=== PATIENT | female | born 2000 | race Two or more races ===

== ENCOUNTER 2025-02-17 09:44 | Emergency (ER) | payer OTHER ==
[2025-02-17 09:55] VITALS: RESP 18; BMI 24.2
[2025-02-17] MEDS ORDERED: ONDANSETRON 4 MG/2 ML VIAL ONE (10:27)
[2025-02-17] MEDS ORDERED: KETOROLAC TROMETHAMINE 15 MG/ML VIAL ONE (10:27)
[2025-02-17] MEDS: ONDANSETRON 4 MG/2 ML VIAL IVPUSH ONE (10:41)
[2025-02-17] MEDS: KETOROLAC TROMETHAMINE 15 MG/ML VIAL IVPUSH ONE (10:42)
[2025-02-17] MEDS: LACTATED RINGERS SOLUTION 1000 ML INFUS.BAG IV ONE (10:43)
[2025-02-17 10:44] LABS: ABSOLUTE IMMATURE GRANULOCYTES 0.01 x10^3/uL (0.0-0.031); BASOPHILS # 0.09 x10^3/uL (0.01-0.08); EOSINOPHIL % 2.0 % (0.7-5.8); EOSINOPHILS # 0.13 x10^3/uL (0.04-0.36); MCHC 32.9 g/dl (32.2-35.5); MEAN CELL VOLUME 88.5 fl (79.4-94.8); MEAN PLT VOLUME 11.3 fl (9.4-12.3); MONOCYTE # 0.48 x10^3/uL (0.24-0.86); MONOCYTE % 7.5 % (4.7-12.5); RDW 12.5 % (12.1-16.5)
[2025-02-17] MEDS: ACETAMINOPHEN 1000 MG/100 ML BAG IVPB ONE (10:44)
[2025-02-17 11:32] LABS: GLUCOSE,RANDOM 128.0 mg/dL (74-106); TOT PROT 7.3 g/dl (6.4-8.2)
[2025-02-17 11:33] LABS: CO2 19.0 mmol/L (21-32)
[2025-02-17 11:35] LABS: ALK PHOS 62.0 U/L (40-150)
[2025-02-17 11:38] LABS: CREATININE 0.78 mg/dL (0.55-1.3); SGOT/AST 17.0 U/L (5-34); SGPT/ALT 15.0 U/L (0-55)
[2025-02-17 11:50] LABS: EPI CELLS 3 /uL (0-25.1); HYALINE CASTS 0 /uL (0-3.1); URINE APPEARANCE CLEAR; URINE BACTERIA 46 /uL (0-1359); URINE BILIRUBIN NEGATIVE (NEGATIVE); URINE COLOR YELLOW; URINE GLUCOSE (UA) NEGATIVE (NEGATIVE); URINE KETONE NEGATIVE (NEGATIVE); URINE LEUK ESTERASE NEGATIVE (NEGATIVE); URINE NITRITE NEGATIVE (NEGATIVE); URINE PROTEIN NEGATIVE (NEGATIVE); URINE RBC 26 /uL (0-23.9); URINE UROBILINOGEN 0.2 mg/dL (0.2-1.0); URINE WBC 5 /uL (0-25.8)
[2025-02-17 12:42] LABS: HCV DIAGNOSTIC IN-HOUSE W/RFLX NON-REACTIVE (NONREACTIVE); HIV INTERPRETATION NEGATIVE (NEGATIVE)
[2025-02-17 14:49] VITALS: TEMP 97.7
[2025-02-17 16:16] VITALS: BP 99/59; PULSE 67
== END 2025-02-17 16:12 | disposition home or self-care (01) ==
LOC: JER 09:44
PROC: 3E0333Z Introduction of Anti-inflammatory into Peripheral Vein, Percutaneous Approach (ICD-10-PCS; principal; 2025-02-17)
PROC: 3E033GC Introduction of Other Therapeutic Substance into Peripheral Vein, Percutaneous Approach (ICD-10-PCS; 2025-02-17)
DX: N83.201 Unspecified ovarian cyst, right side (principal); N13.2 Hydronephrosis with renal and ureteral calculous obstruction; R11.0 Nausea; R10.31 Right lower quadrant pain; R30.0 Dysuria; N83.202 Unspecified ovarian cyst, left side
CPT/HCPCS: 36415; 74177-TC; 76830-TC; 76856-TC; 80053; 81003; 83605; 83690; 83735; 84703; 85025; 86803; 87086; 87389; 99285-25; Q9967